=== PATIENT | male | born 1950 | race Caucasian/White ===

== ENCOUNTER 2017-07-15 17:05 | Emergency (ER) | payer OTHER ==
[~2017-07-15 17:05] MED LIST: DOC100 PO; GAB300 PO; IBU600 PO; LEVO50TA80 PO; LOSA25TA50 PO; NIA500 PO; OXYC-865 PO; PRED20TA6 PO; SIL50 PO; VALA100059 PO; [UNRECOGNIZED DRUG - CODE] OP
[2017-07-15] MEDS ORDERED: methylPREDNIS SUCC 125 MG/2ML IVP ONE (17:25)
[2017-07-15] MEDS ORDERED: NS(*) 0.9% 1000 ML BAG 1,000 ML IV ONE (17:25)
[2017-07-15] MEDS ORDERED: FAMOTIDINE(*) 20MG/50ML PREMIX 50 ML IVPB ONE (17:25)
--- NOTE | 2017-07-15 17:29 | ER Report ---
History and Physical Time Seen By MD: 17:16 HPI/ROS CHIEF COMPLAINT: Allergic reaction HISTORY OF PRESENT ILLNESS: 66-year-old male patient presents to emergency room with complaint of allergic reaction. Patient states that he was in his office working and noticed that his hands started to feel tingly, the nurses lips were swelling and he feels like he's had some swelling in his throat. He states that he is not had any changes in his medications. He states he is not had any changes in lotions or anything else. He states that today he did eat some sardines that were canned and olive oil. He also some celery. He states he has never had a problem with those in the past. He states that this started approximately 2 hours ago and has not resolved. He states that his hands are feeling less tingly than they were. He has not taken any medication for this. He denies having any shortness of breath. REVIEW OF SYSTEMS: Respiratory: No cough, no dyspnea. Cardiovascular: No chest pain, no palpitations. Gastrointestinal: No vomiting, no abdominal pain. Musculoskeletal: No back pain. Allergies: Coded Allergies: ciprofloxacin (Verified Allergy, Intermediate, TENDONITIS, 08/17/16) levofloxacin (Verified Allergy, Intermediate, TENDONITIS, 08/17/16) Uncoded Allergies: FLUOROQUINOLONES (Adverse Reaction, Intermediate, TENDONITIS, 05/17/16) Home Meds Active Scripts Prednisone (PREDNISONE) 20 Mg Tablet, 20 MG PO DAILY, #10 TAB Prov:VINOD HERNANDEZ [facility] 07/15/17 Famotidine (PEPCID) 20 Mg Tablet, 20 MG PO QDAY, #10 TAB Prov:VINOD HERNANDEZ [facility] 07/15/17 Oxycodone Hcl/Acetaminophen (PERCOCET 5-325 MG TABLET) 1 Each Tablet, 1 EACH PO Q4H for PAIN, #30 TAB 0 Refills Prov:MARIANA TORRES MD 08/17/16 Trifluridine (VIROPTIC) 7.5 Ml Drops, 7.5 ML OP Q2WA, #1 BOTTLE 0 Refills Prov:MARIANA TORRES MD 08/17/16 Reported Medications Prednisone (PREDNISONE) 20 Mg Tablet, 20 MG PO QDAY, TAB 08/17/16 Valacyclovir Hcl (VALACYCLOVIR) 1,000 Mg Tablet, 1000 MG PO TID 08/17/16 Losartan Potassium (LOSARTAN POTASSIUM) 25 Mg Tablet, 25 MG PO QDAY 04/16/16 Ibuprofen (Motrin) 600 Mg Tab, 600 MG PO Q6H, #20 0 Refills 05/19/11 Niacin (Niaspan) 500 Mg Tab, 1500 MG PO DAILY, 0 Refills 05/19/11 Levothyroxine Sodium (Synthroid) 50 Mcg Tablet, 50 MCG PO QDAY, 0 Refills 05/19/11 Past Medical/Surgical History Patient has a past medical history of diverticulosis, reflux, prostate cancer, metabolic syndrome, alcohol use, prostatectomy, depression, prostate cancer. Patient has surgical history prostatectomy, vasectomy. Reviewed Nurses Notes: Yes Hx Smoking: No Hx Substance Use Disorder: No Hx Alcohol Use: Yes (1-2 DRINKS PER WEEK) Constitutional Vital Sign - Last 24 Hours 07/15/17 17:41 Pulse 65 Resp 18 B/P (MAP) 124/74 Pulse Ox 91 O2 Delivery Room Air Physical Exam General Appearance: The patient is alert, has no immediate need for airway protection and no current signs of toxicity. Eyes: Pupils equal and round no injection. Patient does have some swelling around the eyes, lips. Respiratory: Chest is non tender, lungs are clear to auscultation. Cardiac: regular rate and rhythm Gastrointestinal: Abdomen is soft and non tender, no masses, bowel sounds normal. Musculoskeletal: Neck: Neck is supple and non tender. Extremities have full range of motion and are non tender. Skin: No rashes or lesions. DIFFERENTIAL DIAGNOSIS: After history and physical exam differential diagnosis was considered for allergic reaction. Medical Decision Making Data Points Result Diagram: 07/15/17 1801 07/15/17 1801 Laboratory Hematology Test 07/15/17 18:01 Red Blood Count 5.45 M/uL (4.00-5.60) Mean Corpuscular Volume 92.1 fL (80.0-96.0) Mean Corpuscular Hemoglobin 31.3 pg (26.0-33.0) Mean Corpuscular Hemoglobin Concent 34.0 g/dL (32.0-36.0) Red Cell Distribution Width 13.7 % (11.5-14.5) Mean Platelet Volume 7.4 fL (7.2-11.1) Neutrophils (%) (Auto) 67.8 % (39.4-72.5) Lymphocytes (%) (Auto) 25.4 % (17.6-49.6) Monocytes (%) (Auto) 5.8 % (4.1-12.4) Eosinophils (%) (Auto) 0.5 % (0.4-6.7) Basophils (%) (Auto) 0.5 % (0.3-1.4) Nucleated RBC Relative Count (auto) 0.0 /100WBC Neutrophils # (Auto) 4.3 K/uL (2.0-7.4) Lymphocytes # (Auto) 1.6 K/uL (1.3-3.6) Monocytes # (Auto) 0.4 K/uL (0.3-1.0) Eosinophils # (Auto) 0.0 K/uL (0.0-0.5) Basophils # (Auto) 0.0 K/uL (0.0-0.1) Nucleated RBC Absolute Count (auto) 0.00 K/uL Sodium Level 139 mmol/L (137-145) Potassium Level 4.0 mmol/L (3.5-5.0) Chloride Level 103 mmol/L (98-107) Carbon Dioxide Level 23 mmol/L (22-30) Blood Urea Nitrogen 22 mg/dl (9-21) Creatinine 1.30 mg/dl (0.66-1.25) Glomerular Filtration Rate Calc 55.4 Random Glucose 97 mg/dl (75-110) Calcium Level 9.5 mg/dl (8.4-10.2) Total Bilirubin 0.5 mg/dl (0.2-1.3) Aspartate Amino Transf (AST/SGOT) 19 U/L (0-35) Alanine Aminotransferase (ALT/SGPT) 32 U/L (0-56) Alkaline Phosphatase 54 U/L (0-126) Total Protein 7.1 gm/dl (6.3-8.2) Albumin 4.4 g/dl (3.5-5.0) Chemistry Test 07/15/17 18:01 White Blood Count 6.3 k/uL (4.5-11.0) Red Blood Count 5.45 M/uL (4.00-5.60) Hemoglobin 17.1 g/dL (14.0-18.0) Hematocrit 50.2 % (42.0-52.0) Mean Corpuscular Volume 92.1 fL (80.0-96.0) Mean Corpuscular Hemoglobin 31.3 pg (26.0-33.0) Mean Corpuscular Hemoglobin Concent 34.0 g/dL (32.0-36.0) Red Cell Distribution Width 13.7 % (11.5-14.5) Platelet Count 207 K/uL (150-450) Mean Platelet Volume 7.4 fL (7.2-11.1) Neutrophils (%) (Auto) 67.8 % (39.4-72.5) Lymphocytes (%) (Auto) 25.4 % (17.6-49.6) Monocytes (%) (Auto) 5.8 % (4.1-12.4) Eosinophils (%) (Auto) 0.5 % (0.4-6.7) Basophils (%) (Auto) 0.5 % (0.3-1.4) Nucleated RBC Relative Count (auto) 0.0 /100WBC Neutrophils # (Auto) 4.3 K/uL (2.0-7.4) Lymphocytes # (Auto) 1.6 K/uL (1.3-3.6) Monocytes # (Auto) 0.4 K/uL (0.3-1.0) Eosinophils # (Auto) 0.0 K/uL (0.0-0.5) Basophils # (Auto) 0.0 K/uL (0.0-0.1) Nucleated RBC Absolute Count (auto) 0.00 K/uL Glomerular Filtration Rate Calc 55.4 Calcium Level 9.5 mg/dl (8.4-10.2) Total Bilirubin 0.5 mg/dl (0.2-1.3) Aspartate Amino Transf (AST/SGOT) 19 U/L (0-35) Alanine Aminotransferase (ALT/SGPT) 32 U/L (0-56) Alkaline Phosphatase 54 U/L (0-126) Total Protein 7.1 gm/dl (6.3-8.2) Albumin 4.4 g/dl (3.5-5.0) ED Course/Re-evaluation ED Course Patient was admitted to exam room, history of physical or obtained. Differential diagnoses were considered. On examination patient has some swelling around his eyes, swelling around his lips. He states he felt some tingling on his neck but denies any shortness of breath or difficulty breathing. Patient also noted that he had some tingling to his fingers. An IV was started, a CBC, CMP were obtained. The results were unremarkable. Patient received a liter of normal saline, 20 of Pepcid and 125 of Solu-Medrol. On reevaluation patient states he feels significantly better. He is not having any tingling he's not having any difficulty breathing. I discussed with patient I believe there is likely the additives were added to the olive oil with sardines that caused the tingling to his hands as well as his esophagus and lips. With him being improved we'll go ahead and discharge him home. We will give him a prescription of prednisone 20 mg he is to take daily. As I typically give patients 40 mg a day I will prescribe 10 tablets. He is to double up if he starts feeling tingling in his fingers or his throat. I discussed this with the patient who verbalized understanding and agreement. Decision to Disposition Date: Jul 15, 2017 Decision to Disposition Time: 20:01 Depart Departure Latest Vital Signs Vital Signs Date Time Temp Pulse Resp B/P (MAP) Pulse Ox O2 Delivery O2 Flow Rate FiO2 07/15/17 17:41 65 18 124/74 91 Room Air Impression: Primary Impression: Allergic reaction Condition: Improved Disposition: HOME OR SELF-CARE Referrals: VIVIAN TORRES (PCP) New Scripts Prednisone (PREDNISONE) 20 Mg Tablet 20 MG PO DAILY, #10 TAB Prov: VINOD HERNANDEZ 07/15/17 Famotidine (PEPCID) 20 Mg Tablet 20 MG PO QDAY, #10 TAB Prov: VINOD HERNANDEZ 07/15/17 Patient Instructions: General Allergic Reaction (ED) Additional Instructions: Increase fluid intake. Get plenty of rest. Take the medication as prescribed. Take the Prednisone for 5 days, start with 1 tab a day, however if you feel the tingling again in your hands increase to 40mg daily, 2 of the 20mg tabs. Return to the ER if condition worsens. Take the Pepcid as directed. Problem Qualifiers Primary Impression: Allergic reaction Encounter type: initial encounter Qualified Codes: T78.40XA - Allergy, unspecified, initial encounter VINOD HERNANDEZ Jul 15, 2017 17:28
[2017-07-15] MEDS ORDERED: diphenhydrAMINE 50 MG/ML VIAL IVP ONE (17:30)
[2017-07-15 17:41] VITALS: BP 124/74
[2017-07-15 18:08] LABS: PLATELET COUNT, AUTOMATED 207 K/uL (150-450)
[2017-07-15] MEDS ORDERED: FAMO20TA28 PO (20:00)
[2017-07-15] MEDS ORDERED: PRED20TA6 PO (20:00)
[2017-07-16] MEDS ORDERED: BUPR-472 PO (07:05)
[2017-07-16] MEDS ORDERED: LOTE5DRO3 OD (07:05)
== END 2017-07-15 20:15 | disposition home or self-care (01) ==
LOC: ER 17:12
DX: T78.40XA Allergy, unspecified, initial encounter (principal)
CPT/HCPCS: 85025; 96365; 96366; 96375; 99284; J1200; J2930; J3490; J7030; 82040; 82247; 82310; 82374; 82435; 82565; 82947; 84075; 84132; 84155; 84295; 84450; 84460; 84520

== ENCOUNTER → 2018-09-11 | Outpatient (CLI) | payer OTHER ==
[~2018-09-11] MED LIST changes: +ASPI81TA94 PO; +BARIUM SULFATE 176 GM BTL PO ONE; +BARIUM SULFATE 340 GM POWD ONE; +BUPR-472 PO; +DEXL60CA6 PO; +FAMO20TA28 PO; -LOSA25TA50 PO; +LOSA25TA57 PO; +LOTE5DRO3 OD; +ROSU5TAB8 PO
--- NOTE | 2018-09-11 17:20 | RADIOLOGY IMAGING REPORT ---
FACILITY: [facility] [place] PATIENT NAME: Salvador Mittal : 1950 MR: [id number] V: [id number] EXAM DATE: ORDERING PHYSICIAN: JIMMY ROTHMAN TECHNOLOGIST: Location: [facility] Patient: Salvador Mittal : 1950 Visit/Account:[id number] Date of Sevice: 09/11/2018 Exam type: ESOPHAGRAM History: GERD, difficulty swallowing Comparison: None. Findings: Double contrast esophagram was performed with thick and thin barium and air contrast. There was a ve ry prominent impression along the posterior wall of the cervical esophagus at the approximate level o f C4-5 which is likely related to prominent cricopharyngeus muscle impression. A hiatal hernia was n ot demonstrated. No other narrowing within the esophagus seen. There is no demonstration of mucosal erosion. A 12 mm barium tablet passed freely into the stomach. The fluoroscopy dose area product w as 333.11 micro-Conn per meter squared IMPRESSION: 1. Very prominent impression along the posterior wall the cervical esophagus at the approximate leve l of C4-5 which is likely related to a very prominent cricopharyngeus muscle impression. Report Dictated By: Esthela Armstrong MD at 09/11/2018 5:11 PM Report E-Signed By: Esthela Armstrong MD at 09/11/2018 5:14 PM WSN:[email or web address]
== END ==
LOC: RAD 00:49
PROVIDERS: ATTEND Nurse Practitioner Family
DX: R13.10 Dysphagia, unspecified (principal)
CPT/HCPCS: 74220

== ENCOUNTER 2019-02-12 00:55 | Day surgery (SDC) | payer OTHER ==
[~2019-02-12] VITALS: Ht 180.3 cm; Wt 82.1 kg
[~2019-02-12 00:55] MED LIST changes: -BARIUM SULFATE 176 GM BTL PO ONE; -BARIUM SULFATE 340 GM POWD ONE; +BROM5DRO2 OD; +LIDOCAINE/SOD BICARB 8.4% SYR ID ONE; +NORMOSOL R SOLN(*) 1000 ML BAG 1,000 ML IV PRN; +OMEG1CAP39 PO; +OMEP-137 PO
[2019-02-12] MEDS ORDERED: PROPOFOL EMUL(*) 10MG/ML 20 ML 20 ML ONE ×2 (12:09→13:40)
[2019-02-12 12:28] VITALS: BP 117/76
[2019-02-12] MEDS ORDERED: NORMOSOL R SOLN(*) 1000 ML BAG 1,000 ML IV PRN (12:40)
[2019-02-12] MEDS ORDERED: LIDOCAINE/SOD BICARB 8.4% SYR ID ONE (12:40)
[2019-02-12 13:54] VITALS: BP 110/64
[2019-02-12 14:15] VITALS: BP 119/68
[2019-02-12 14:41] VITALS: BP 127/68
[2019-02-12 14:42] VITALS: BP 114/67
== END 2019-02-12 14:48 | disposition home or self-care (01) ==
LOC: OR 00:55
PROVIDERS: ATTEND Internal Medicine Gastroenterology
DX: K44.9 Diaphragmatic hernia without obstruction or gangrene (principal); K20.9 Esophagitis, unspecified; K29.70 Gastritis, unspecified, without bleeding
CPT/HCPCS: 43239; 43248; 88305; 88313; 88342; C1769; J2704